=== PATIENT | female | born 1950 | race Caucasian/White ===

== ENCOUNTER → 2018-11-15 | Outpatient (CLI) | payer OTHER ==
--- NOTE | 2018-11-16 08:19 | RAD ---
Bone mineral density exam History: Osteoporosis screening, postmenopausal Comparison: None Findings: Bone mineral density examination utilizing DEXA was performed. Right femur bone mineral density of 583 mg/cm2 corresponds with a T score -3.0, Z score -1.6. The bone mineral density of the lumbar spine was 0.783 g/cm2 which corresponds with a T-score of -3.3, Z score -1.6. By World Congress on Osteoporosis criteria, a T score of 0 to-1 SD is considered to be within normal limits. A T score of -1 to -2.5 SD is considered osteopenia. A T score less than -2.5 SD is considered osteoporosis Impression: 1. There is osteoporosis of the lumbar spine and the right femur. Electronically signed by: Omid Sanchez MD (11/16/2018 8:15 AM) [id number]
--- NOTE | 2018-11-16 14:53 | RAD ---
DATE: 11/15/2018 1:00 PM EXAM: DIGITAL SCREEN BILAT W/CAD HISTORY: routine screening evaluation. COMPARISON: None available Bilateral full field craniocaudal and mediolateral oblique images were obtained using digital technique. This study was interpreted with the benefit of Computerized Aided Detection (CAD ). Breast Density: The breast parenchyma is primarily fatty replaced. Breast parenchyma level density A. FINDINGS: Approximately 10 cm from the nipple, in the upper, outer right breast there is a well-circumscribed mass measuring approximately 3.5 cm. Benign calcifications are present. No suspicious masses, microcalcifications or architectural distortion is present to suggest malignancy in the left breast. The visualized axillae are unremarkable. IMPRESSION: Right breast mass, findings for which additional imaging is advised. BI-RADS CATEGORY: 0 INCOMPLETE: NEEDS ADDITIONAL IMAGING EVALUATION AND/OR PRIOR MAMMOGRAMS FOR COMPARISON. RECOMMENDED FOLLOW-UP: ADD ADDITIONAL IMAGING The patient will be contacted to return for additional imaging and a supplemental report will follow. Ultrasound of the upper outer right breast is recommended. PQRS compliance statement: Patient information was entered into a reminder system with a target due date -immediate recall for the next breast imaging. Mammography is a sensitive method for finding small breast cancers, but it does not detect them all and is not a substitute for careful clinical examination. A negative mammogram does not negate a clinically suspicious finding and should not result in delay in biopsying a clinically suspicious abnormality. "Our facility is accredited by the [employer] [place] Mammography [employer]." YOUD
== END | disposition home or self-care (01) ==
LOC: DXRAD 10:14
PROVIDERS: ATTEND Registered Nurse
DX: Z12.31 Encounter for screening mammogram for malignant neoplasm of breast (principal); M81.0 Age-related osteoporosis without current pathological fracture; Z78.0 Asymptomatic menopausal state
CPT/HCPCS: 77067; 77080